=== PATIENT | male | born 1970 | race Caucasian/White ===

== ENCOUNTER 2017-09-08 19:27 | Observation (INO) ==
[2017-09-08] MEDS ORDERED: Sod Chloride 0.9% Inj 1,000 ML IV.SIG ONE ×2 (20:14→21:16)
--- NOTE | 2017-09-08 20:23 | ED ---
HPI General Chief Complaint: Chest Pain Stated Complaint: Cardiac Time Seen by Provider: 09/08/17 20:06 History of Present Illness HPI narrative: 47-year-old male presents to the emergency department complaining of left-sided chest tightness that radiates to the left upper extremity intermittently since 1 PM today. Patient does not report any type of recent injury or febrile illness. Patient does report history of coronary vessel disease with cardiac catheterization 3 in the past. Patient reports last cardiac catheterization was performed approximately 10 years ago when he lived in [place]. 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 Patient does have a local primary care provider. Patient also has history of hypertension dyslipidemia diabetes tobaccoism and gouty arthritis as well as bipolar disorder with anxiety. Patient does not have access to sublingual nitroglycerin. Patient is taken no medications for management of his pain. Patient rates his current pain 10/10 intensity but wall obtaining patient's history pain decreases to 6/10 intensity. Patient states symptoms are worsened by taking a deep breath and alleviated slightly by holding his arms over his head. Patient does not report any referred neck jaw mid scapular or abdominal pain. No sweats no nausea or vomiting. Patient states he would like to have a cigarette at this time. Patient does report that he recently traveled by motorcycle from [place] to [place] and back to [place] within the past 3 weeks and that he does have a family history of clotting disorder in his mother which occurred postoperatively. No report of recent protracted bedrest or surgical procedure. Patient has not noticed any marked swelling of the lower extremities. Complete Quality Measures for STEMI Alert Patients Related Data Home Medications Medication Instructions Recorded Confirmed alprazolam [Xanax] 2 mg PO BID 09/08/17 09/08/17 atorvastatin [Lipitor] 40 mg PO DAILY 09/08/17 09/08/17 gabapentin [Neurontin] 600 mg PO TID 09/08/17 09/08/17 lisinopril 40 mg PO DAILY 09/08/17 09/08/17 citalopram 09/09/17 09/09/17 insulin NPH and regular human 35 unit SUB-Q BID 09/09/17 09/09/17 [Novolin 70/30 U-100 Insulin] lurasidone 09/09/17 09/09/17 metformin 09/09/17 09/09/17 Allergies Allergy/AdvReac Type Severity Reaction Status Date / Time No Known Allergies Allergy Verified 09/08/17 19:34 Review of Systems Except as stated in HPI: all other systems reviewed are negative [facility] Medical History Medical History Bipolar 1 disorder (Acute) Gout (Acute) Neuropathy (Acute) TIA (transient ischemic attack) (Acute) Type II diabetes mellitus with neurological manifestations (Acute) Hypercholesteremia (Chronic) Hypertension (Chronic) Surgical History Surgical History History of appendectomy (Acute) History of hemorrhoidectomy (Acute) Hx of tonsillectomy (Acute) Family History Family History Father Coronary artery disease Mother Multiple myeloma CVA (cerebral vascular accident) Brother Multiple myeloma Social History Social History Substance History: No History of Abuse Second Hand Smoke Exposure: Yes Smoking Status: Heavy tobacco smoker Tobacco Type: Cigarettes Packs Per Day: 1 Cigarettes Per Day: 20.0 Years Smoked: 30 Pack-Years: 30.00 How Often Do You Have a Drink Containing Alcohol: Never Hx Recent Travel: Yes (Returned from trip to [place] via motorcycle 3 weeks ago) Recent Travel in [facility] within the Last 8 Weeks: No Recent Out of Country Travel within the Last 8 Weeks: No Immunization History Tetanus Immunization: <5 Years Hx Influenza Vaccine This Season: Yes Exam Narrative Exam Narrative: GENERAL: Well-nourished, well-developed patient. SKIN: Focused skin assessment warm/dry. HEAD: Normocephalic. EYES: No scleral icterus. No injection or drainage. NECK: Supple, trachea midline. No JVD or lymphadenopathy. CARDIOVASCULAR: Regular rate and rhythm without murmurs, gallops, or rubs. RESPIRATORY: Breath sounds equal bilaterally. No accessory muscle use. GASTROINTESTINAL: Abdomen soft, non-tender, nondistended. MUSCULOSKELETAL: No cyanosis, or edema. BACK: Nontender without obvious deformity. No CVA tenderness. Course Initial Documented Vital Signs Temperature 98.5 F 09/08/17 19:30 Pulse Rate 92 H 09/08/17 19:30 Respiratory Rate 20 09/08/17 19:30 Blood Pressure 144/76 H 09/08/17 19:30 Pulse Oximetry 97 09/08/17 19:30 Last Documented Vital Signs Temperature 97.5 F L 09/09/17 12:00 Pulse Rate 57 L 09/09/17 12:33 Respiratory Rate 15 09/09/17 12:33 Blood Pressure 125/83 09/09/17 12:00 Pulse Oximetry 97 09/09/17 12:00 Medical Decision Making MDM Narrative Medical decision making narrative: 47-year-old male with tobaccoism diabetes hypertension dyslipidemia CAD cardiac catheterization 3 with prior angioplasty and last cath showed a single-vessel of 45% disease 10 years ago presents now with left-sided chest tightness radiating to the left upper extremity. Patient placed on scrap collector with continuous pulse oximetry IV access obtained specimens collected and sent for resulting patient given bolus of normal saline aspirin 162 mg to be chewed as well as ordered to receive 1 sublingual nitroglycerin with close monitoring of his blood pressure EKG performed shows no acute ST elevation or injury pattern nonspecific coving of V3 without reciprocal changes. At 9:23 PM patient reports that chest pain has improved significantly from 10/ 10 intensity down to 3/10 in intensity lab values are found to be grossly within normal range except for random glucose of 392 and states he has not taken his evening dose of insulin 7030 also d-dimer is not elevated at 0.26 troponin I is less than 0.02, not elevated and CK total is 195 not elevated chest x-ray reveals no acute abnormality CBC with automated differential is grossly within normal range except for some eosinophilia potassium is 3.7 bicarb is in normal range at 27.5 and anion gap is 9 renal function is normal. Patient given additional fluid bolus additional dose of nitroglycerin 0.4 mg sublingual and Toradol 30 mg IV for complaint of pleuritic component of discomfort. O2 saturation remains 96-98% on room air. Patient does not complain of any shortness of breath at this time. Patient has no nausea has had no vomiting no diaphoresis and does not complain of referred pain at this time. In view of patient's risk factor profile male age 47 tobacco use diabetes uncontrolled hypertension dyslipidemia and known coronary vessel disease plan will be to admit patient to chest pain center per protocol. Patient also given dose of insulin regarding hyperglycemia. Patient states his last hemoglobin A1c was 11 approximately a month ago and patient reports his last cardiac evaluation was 5 years ago with a nuclear stress test in [place]. Patient has had no cardiac evaluation here in [place]. Patient is agreeable to observation admission. Differential Diagnosis Differential Diagnosis: Chest pain, ACS, HI, PE, ACS, musculoskeletal pain, esophageal spasm Medical Records no prior available records Lab Data Lab results reviewed: Yes I reviewed the patient's lab results. Result diagrams: 09/08/17 20:25 09/08/17 20:25 Lab Results 09/08/17 09/08/17 09/08/17 Range/Units 20:25 20:25 20:25 WBC 10.4 (4.0-11.0) th/mm3 RBC 4.91 (4.50-5.90) mil/mm3 Hgb 15.3 (13.0-17.0) gm/dL Hct 43.8 (39.0-51.0) % MCV 89.2 (80.0-100.0) fL MCH 31.1 (27.0-34.0) pg MCHC 34.8 (32.0-36.0) % RDW 13.4 (11.6-17.2) % Plt Count 355 (150-450) th/mm3 MPV 7.2 (7.0-11.0) fL Neut % (Auto) 66.1 (16.0-70.0) % Lymph % (Auto) 19.4 (9.0-44.0) % [place] % (Auto) 7.5 (0.0-8.0) % Eos % (Auto) 6.4 H (0.0-4.0) % Baso % (Auto) 0.6 (0.0-2.0) % Neut # (Auto) 6.9 (1.8-7.7) th/mm3 Lymph # (Auto) 2.0 (1.0-4.8) th/mm3 [place] # (Auto) 0.8 (0.0-0.9) th/mm3 Eos # (Auto) 0.7 H (0.0-0.4) th/mm3 Baso # (Auto) 0.1 (0.0-0.2) th/mm3 WBC Differential . Differential Comment Auto diff final PT 10.5 (9.8-11.6) sec INR 1.0 Ratio APTT 25.1 (24.3-30.1) sec D-Dimer Quant (PE/DVT) 0.26 (0.00-0.50) mg/L FEU Sodium 131 L (136-145) meq/L Potassium 3.7 (3.5-5.1) meq/L Chloride 95 L (98-107) meq/L Carbon Dioxide 27.5 (21.0-32.0) meq/L Anion Gap 9 (5-15) meq/L BUN 3 L (7-18) mg/dL Creatinine 1.29 (0.60-1.30) mg/dL Estimated GFR 60 L (>89) mL/min POC Glucose (68-110) mg/dl Random Glucose 392 H (74-106) mg/dL Calcium 9.1 (8.5-10.1) mg/dL Total Creatine Kinase 195 (39-308) U/L CK-MB (CK-2) 0.8 (0.5-3.6) ng/mL Troponin I Less than 0.02 L (0.02-0.05) ng/mL 09/08/17 09/08/17 09/09/17 Range/Units 22:21 23:30 02:40 WBC (4.0-11.0) th/mm3 RBC (4.50-5.90) mil/mm3 Hgb (13.0-17.0) gm/dL Hct (39.0-51.0) % MCV (80.0-100.0) fL MCH (27.0-34.0) pg MCHC (32.0-36.0) % RDW (11.6-17.2) % Plt Count (150-450) th/mm3 MPV (7.0-11.0) fL Neut % (Auto) (16.0-70.0) % Lymph % (Auto) (9.0-44.0) % [place] % (Auto) (0.0-8.0) % Eos % (Auto) (0.0-4.0) % Baso % (Auto) (0.0-2.0) % Neut # (Auto) (1.8-7.7) th/mm3 Lymph # (Auto) (1.0-4.8) th/mm3 [place] # (Auto) (0.0-0.9) th/mm3 Eos # (Auto) (0.0-0.4) th/mm3 Baso # (Auto) (0.0-0.2) th/mm3 WBC Differential Differential Comment PT (9.8-11.6) sec INR Ratio APTT (24.3-30.1) sec D-Dimer Quant (PE/DVT) (0.00-0.50) mg/L FEU Sodium (136-145) meq/L Potassium (3.5-5.1) meq/L Chloride (98-107) meq/L Carbon Dioxide (21.0-32.0) meq/L Anion Gap (5-15) meq/L BUN (7-18) mg/dL Creatinine (0.60-1.30) mg/dL Estimated GFR (>89) mL/min POC Glucose 264 H (68-110) mg/dl Random Glucose (74-106) mg/dL Calcium (8.5-10.1) mg/dL Total Creatine Kinase 168 (39-308) U/L CK-MB (CK-2) (0.5-3.6) ng/mL Troponin I Less than 0.02 L Less than 0.02 L (0.02-0.05) ng/mL 09/09/17 Range/Units 12:21 WBC (4.0-11.0) th/mm3 RBC (4.50-5.90) mil/mm3 Hgb (13.0-17.0) gm/dL Hct (39.0-51.0) % MCV (80.0-100.0) fL MCH (27.0-34.0) pg MCHC (32.0-36.0) % RDW (11.6-17.2) % Plt Count (150-450) th/mm3 MPV (7.0-11.0) fL Neut % (Auto) (16.0-70.0) % Lymph % (Auto) (9.0-44.0) % [place] % (Auto) (0.0-8.0) % Eos % (Auto) (0.0-4.0) % Baso % (Auto) (0.0-2.0) % Neut # (Auto) (1.8-7.7) th/mm3 Lymph # (Auto) (1.0-4.8) th/mm3 [place] # (Auto) (0.0-0.9) th/mm3 Eos # (Auto) (0.0-0.4) th/mm3 Baso # (Auto) (0.0-0.2) th/mm3 WBC Differential Differential Comment PT (9.8-11.6) sec INR Ratio APTT (24.3-30.1) sec D-Dimer Quant (PE/DVT) (0.00-0.50) mg/L FEU Sodium (136-145) meq/L Potassium (3.5-5.1) meq/L Chloride (98-107) meq/L Carbon Dioxide (21.0-32.0) meq/L Anion Gap (5-15) meq/L BUN (7-18) mg/dL Creatinine (0.60-1.30) mg/dL Estimated GFR (>89) mL/min POC Glucose 356 H (68-110) mg/dl Random Glucose (74-106) mg/dL Calcium (8.5-10.1) mg/dL Total Creatine Kinase (39-308) U/L CK-MB (CK-2) (0.5-3.6) ng/mL Troponin I (0.02-0.05) ng/mL Imaging Data Radiologist's impression: Chest X-Ray 09/08/17 20:13 CONCLUSION: No acute cardiopulmonary process. Myocardial Perfusion Scan Nuc Med 09/09/17 00:00 CONCLUSION: 1. Unremarkable study. ECG Data EKG Prior to Arrival: No Attestation: I personally reviewed and interpreted this ECG as follows: Prior ECG tracings: not available for review Interpretation: EKG normal sinus rhythm rate 86 normal axis and intervals. No acute ST elevation or injury pattern or cervical changes patient has nonspecific coving of V3. Discharge Plan Discharge Disposition Patient Disposition: 01 Discharge Home Discharge Condition Condition: Good Discharge Order Discharge Orders: Discharge Order (Routine); Ordered 09/09/17 Ordered By: Linnette Carlson Discharge Details Anticipated Discharge Date: 09/09/17 Physicians Team ED Provider: Sheryl Kendrick Primary Care Provider: UNKNOWN, Attending Provider: Cesario Minor ED Status: Left Department Discharge Information Discharge Date/Time: 09/08/17 23:47
[2017-09-08 20:33] LABS: Baso # (Auto) 0.1 th/mm3 (0.0-0.2); Baso % (Auto) 0.6 % (0.0-2.0); Eos # (Auto) 0.7 th/mm3 (0.0-0.4); Eos % (Auto) 6.4 % (0.0-4.0); Hematocrit 43.8 % (39.0-51.0); Hemoglobin 15.3 gm/dL (13.0-17.0); Lymph % (Auto) 19.4 % (9.0-44.0); Mean Corpuscular HGB Conc 34.8 % (32.0-36.0); Mean Corpuscular Hemoglobin 31.1 pg (27.0-34.0); Mean Corpuscular Volume 89.2 fL (80.0-100.0); Mean Platelet Volume 7.2 fL (7.0-11.0); Mono # (Auto) 0.8 th/mm3 (0.0-0.9); Mono % (Auto) 7.5 % (0.0-8.0); Neut # (Auto) 6.9 th/mm3 (1.8-7.7); Neut % (Auto) 66.1 % (16.0-70.0); Platelet Count 355 th/mm3 (150-450); Red Blood Count 4.91 mil/mm3 (4.50-5.90); Red Cell Distribution Width 13.4 % (11.6-17.2); White Blood Count 10.4 th/mm3 (4.0-11.0)
--- NOTE | 2017-09-08 20:41 | XR ---
EXAM DATE: 09/08/2017 8:40 PM EDT AGE/SEX: 47 years / Male INDICATIONS: Midline-left chest pain. CLINICAL DATA: This is the patient's initial encounter. Patient reports that signs and symptoms have been present for 1 day and indicates a pain score of 5/10. MEDICAL/SURGICAL HISTORY: Asthma. Hypertension. . Heart catheterization. COMPARISON: No prior exams available for comparison. FINDINGS: A single AP view of the chest demonstrates the lungs to be symmetrically aerated without evidence of mass, infiltrate or effusion. The cardiomediastinal contours are unremarkable. Osseous structures a re intact. CONCLUSION: No acute cardiopulmonary process. Electronically signed by: Edd Ortega MD 09/08/2017 8:40 PM EDT
[2017-09-08 20:50] LABS: Activated Partial Thrombo Time 25.1 sec (24.3-30.1); Anion Gap 9 meq/L (5-15); Blood Urea Nitrogen 3 mg/dL (7-18); Calcium 9.1 mg/dL (8.5-10.1); Carbon Dioxide 27.5 meq/L (21.0-32.0); Chloride 95 meq/L (98-107); Glomerular Filtration Rate 60 mL/min (>89); Glucose,Random 392 mg/dL (74-106); Potassium 3.7 meq/L (3.5-5.1); Prothrombin Time 10.5 sec (9.8-11.6); Sodium 131 meq/L (136-145)
[2017-09-08 20:51] LABS: D-Dimer 0.26 mg/L FEU (0.00-0.50)
[2017-09-08 20:54] LABS: Creatine Kinase 195 U/L (39-308)
[2017-09-08 21:06] LABS: Creatine Kinase MB 0.8 ng/mL (0.5-3.6)
[2017-09-08] MEDS ORDERED: Ketorolac Inj 30 MG/ML (IVP) Vial IV.PUSH ONE (21:17)
[2017-09-08] MEDS ORDERED: Acetaminophen 500 MG Tablet PO PRN (21:19)
[2017-09-08] MEDS ORDERED: ALPRAZolam 0.25 MG Tablet PO PRN (21:19)
[2017-09-09] LABS: Creatine Kinase 168 U/L (39-308)
[2017-09-09] MEDS ORDERED: Aspirin 325 MG Tablet PO SCH (09:00)
[2017-09-09] MEDS ORDERED: Dextrose 50% in Water 50 ML Vial IV.PUSH PRN (09:13)
--- NOTE | 2017-09-09 09:13 | P.HPCA ---
History of Present Illness Primary Care Physician: Dr. Hernadez Chief Complaint: Chest pain History of Present Illness: 47 year old male with history of CAD, hypertension, hyperlipidemia, type 2 diabetes, and current smoker presents emergency room for further evaluation of nonexertional, intermittent chest pain. Onset yesterday 1 PM. Location left anterior chest. Characterized as a squeezing tight pain. Moderate to severe in severity. Duration constant from seconds to minutes, waxed and waned in intensity, occurring ever 5-10 minutes. Associated symptoms including nausea, dyspnea, diaphoresis, her to take a deep breath. Comfort somewhat worse with left arm movement. Relieving factors "laying still." Denies discomfort being similar to past cardiac event. No recent illness, fever, or injury. Reports cardiac catheterization completed 10 years ago. Cardiac catheterization completed after abnormal stress test. Denies any stents placed during that time , but recalls possible "cleaning out of 1 artery, the other arteries had 40% blockage." does not follow with a workforce specialist. No recent cardiac testing. Diagnoses with type II diabetes one year ago, currently uncontrolled. - Diagnosis (1) Chest pain in adult (2) Tobacco abuse (3) Hypercholesteremia (4) Hypertension (5) Diabetes (6) Hyponatremia Review of Systems All other systems reviewed negative except as stated in HPI PMFSH - History History Provided By: Patient - Medical History Medical History: Medical History (Last Updated 09/09/17 @ 11:25 by JACKI Goodwin) Bipolar 1 disorder Gout Neuropathy TIA (transient ischemic attack) Type II diabetes mellitus with neurological manifestations Hypercholesteremia Hypertension - Surgical History Surgical History: Surgical History (Last Updated 09/09/17 @ 11:02 by JACKI Goodwin) History of appendectomy History of hemorrhoidectomy Hx of tonsillectomy - Family History Family History: Family History (Last Updated 09/09/17 @ 11:05 by JACKI Goodwin) Father Coronary artery disease Mother Multiple myeloma CVA (cerebral vascular accident) Brother Multiple myeloma - Tobacco History Second Hand Smoke Exposure: Yes Tobacco Use In Past 30 Days: Yes Smoking Status: Heavy tobacco smoker Tobacco Type: Cigarettes Packs Per Day: 1 Years Smoked: 30 - Alcohol History How Often Do You Have a Drink Containing Alcohol: Never - Substance Use History Substance History: No History of Abuse - Travel History History of Recent Travel: Yes (Returned from trip to [place] via motorcycle 3 weeks ago) Recent Travel in the [facility] Within the Last 8 Weeks: No Recent Travel Out of the Country Within the Last 8 Weeks: No - Immunization History Tetanus Immunization: <5 Years Hx Influenza Vaccine This Season: Yes Medications and Allergies Active Medications: Active Medications Acetaminophen (Tylenol) 500 mg PO Q4H PRN PRN Reason: HEADACHE Alprazolam (Xanax) 0.25 mg PO Q8H PRN PRN Reason: ANXIETY Aspirin (Aspirin) 325 mg PO DAILY [facility] Last Admin: 09/09/17 08:30 Dose: 325 mg Nitroglycerin (Nitrostat Sl) 0.4 mg SL Q5M PRN PRN Reason: CHEST PAIN Sodium Chloride (Ns Flush) 2 ml IV.FLUSH UNSCH PRN PRN Reason: FLUSH AFTER USING IV ACCESS Sodium Chloride (Ns Flush) 2 ml IV.FLUSH PRN PRN PRN Reason: FLUSH AFTER USING IV ACCESS Sodium Chloride (Ns Flush) 2 ml IV.FLUSH BID [facility] Last Admin: 09/09/17 08:30 Dose: 2 ml Allergies Allergy/AdvReac Type Severity Reaction Status Date / Time No Known Allergies Allergy Verified 09/08/17 19:34 Home Medications Medication Instructions Recorded Confirmed Type alprazolam [Xanax] 2 mg PO BID 09/08/17 09/08/17 History atorvastatin [Lipitor] 40 mg PO DAILY 09/08/17 09/08/17 History gabapentin [Neurontin] 600 mg PO TID 09/08/17 09/08/17 History lisinopril 40 mg PO DAILY 09/08/17 09/08/17 History citalopram 09/09/17 09/09/17 History insulin NPH and regular human 35 unit SUB-Q BID 09/09/17 09/09/17 History [Novolin 70/30 U-100 Insulin] lurasidone [Latuda] 09/09/17 09/09/17 History metformin 09/09/17 09/09/17 History Exam Vital signs: Vital Signs 09/08/17 19:30 09/08/17 20:01 09/08/17 20:13 Temperature 98.5 F 98.2 F Pulse Rate 92 H 88 Pulse Rate [Left] Respiratory Rate 20 20 Blood Pressure 144/76 H 108/75 Blood Pressure [Left Arm] Blood Pressure [Right Arm] Pulse Oximetry 97 95 96 09/08/17 20:30 09/08/17 21:19 09/08/17 21:30 Temperature Pulse Rate 78 Pulse Rate [Left] 80 Respiratory Rate 20 20 Blood Pressure 140/72 Blood Pressure [Left Arm] 113/75 Blood Pressure [Right Arm] 109/68 Pulse Oximetry 96 96 09/08/17 21:54 09/08/17 21:55 09/08/17 22:28 Temperature Pulse Rate Pulse Rate [Left] Respiratory Rate 20 20 20 Blood Pressure Blood Pressure [Left Arm] Blood Pressure [Right Arm] Pulse Oximetry 09/08/17 22:36 09/09/17 00:00 09/09/17 01:47 Temperature 98.6 F Pulse Rate 77 81 81 Pulse Rate [Left] Respiratory Rate 20 16 Blood Pressure 143/63 H 116/69 Blood Pressure [Left Arm] Blood Pressure [Right Arm] Pulse Oximetry 97 09/09/17 04:00 09/09/17 08:00 09/09/17 08:08 Temperature 98.4 F 97.4 F L Pulse Rate 72 78 Pulse Rate [Left] Respiratory Rate 16 16 Blood Pressure 107/72 126/82 Blood Pressure [Left Arm] Blood Pressure [Right Arm] Pulse Oximetry 96 97 97 Intake & Output 09/08/17 09/09/17 09/09/17 18:59 06:59 18:59 Intake Total 1999 Balance 1999 Weight 90.718 kg Intake: IV 1999 NS Inj 1,000 ML @ Wide Open IV. 1999 SIG BOLUS ONE Rx#:[id number] Other: Weight On Admission 90.718 kg Narrative: Pleasant male in no acute distress - Constitutional no acute distress, cooperative - Routine HEENT Exam Head: Present: normocephalic, atraumatic - Routine Neck Exam Present: supple, full ROM. Absent: JVD, carotid bruit - Routine Chest/Breast/Axilla Exam Chest wall: Absent: tenderness - Routine Respiratory Exam Present: decreased breath sounds, prolonged expiratory phase, rhonchi, wheezes. Absent: rales, respiratory distress, crackles Comments: Expiratory wheeze throughout - Routine Cardiovascular Exam Present: RRR. Absent: murmur, gallop, rubs - Routine Abdominal Exam Present: soft, normoactive bowel sounds. Absent: tenderness, distended, firm - Routine Extremities Exam Present: full ROM, pulses intact, normal capillary refill. Absent: edema, calf tenderness - Routine Skin Exam Present: intact, warm Comments: Heavily tattooed - Routine Neurological Exam Present: alert, oriented X3, CN II-XII intact, moving all extremities, normal tone - Routine Psychiatric Exam Present: normal affect, normal thought process, cooperative, good insight, good judgment. Absent: depressed, anxious, agitated, manic Results 09/08/17 20:25 09/08/17 20:25 Cardiac Enzymes 09/08/17 09/08/17 09/09/17 Range/Units 20:25 23:30 02:40 CK-MB (CK-2) 0.8 (0.5-3.6) ng/mL Troponin I Less than 0.02 L Less than 0.02 L Less than 0.02 L (0.02-0.05) ng/mL Coagulation 09/08/17 Range/Units 20:25 PT 10.5 (9.8-11.6) sec APTT 25.1 (24.3-30.1) sec CBC 09/08/17 Range/Units 20:25 WBC 10.4 (4.0-11.0) th/mm3 RBC 4.91 (4.50-5.90) mil/mm3 Hgb 15.3 (13.0-17.0) gm/dL Hct 43.8 (39.0-51.0) % Plt Count 355 (150-450) th/mm3 Neut # (Auto) 6.9 (1.8-7.7) th/mm3 Lymph # (Auto) 2.0 (1.0-4.8) th/mm3 [place]ha # (Auto) 0.8 (0.0-0.9) th/mm3 Eos # (Auto) 0.7 H (0.0-0.4) th/mm3 Baso # (Auto) 0.1 (0.0-0.2) th/mm3 Comprehensive Metabolic Panel 09/08/17 Range/Units 20:25 Sodium 131 L (136-145) meq/L Potassium 3.7 (3.5-5.1) meq/L Chloride 95 L (98-107) meq/L Carbon Dioxide 27.5 (21.0-32.0) meq/L BUN 3 L (7-18) mg/dL Creatinine 1.29 (0.60-1.30) mg/dL Calcium 9.1 (8.5-10.1) mg/dL Intake and Output 09/08/17 09/09/17 09/09/17 22:59 06:59 14:59 Intake Total 1999 Balance 1999 Intake: IV 1999 NS Inj 1,000 ML @ Wide Open IV. 1999 SIG BOLUS ONE Rx#:[id number] Other: Weight 90.718 kg 90.718 kg Weight On Admission 90.718 kg EKG interpretations - EKG EKG results cardiology: sinus rhythm, normal axis, normal QRS (NSR, nonspecific st t segment changes) Caprini VTE Risk Assessment Caprini VTE Risk Assessment: No/Low Risk (score <= 1) Caprini Risk Assessment Model: Point Value = 1 Point Value = 2 Point Value = 3 Point Value = 5 Age 41-60 Minor surgery BMI > 25 kg/m2 Swollen legs Varicose veins or History of unexplained or recurrent spontaneous Oral contraceptives or hormone replacement Sepsis (< 1 month) Serious lung disease, including pneumonia (< 1 month) Abnormal pulmonary function Acute myocardial infarction Congestive heart failure (< 1 month) History of inflammatory bowel disease Medical patient at bed rest Age 61-74 Arthroscopic surgery Major open surgery (> 45 min) Laparoscopic surgery (> 45 min) Malignancy Confined to bed (> 72 hours) Immobilizing plaster cast Central venous access Age >= 75 History of VTE Family history of VTE Factor V Leiden Prothrombin [id number] Lupus anticoagulant Anticardiolipin antibodies Elevated serum homocysteine Heparin-induced thrombocytopenia Other congenital or acquired thrombophilia Stroke (< 1 month) Elective arthroplasty Hip, pelvis, or leg fracture Acute spinal cord injury (< 1 month) Prophylaxis Regimen: Total Risk Factor Score Risk Level Prophylaxis Regimen 0-1 Low Early ambulation 2 Moderate Order ONE of the following: *Sequential Compression Device (SCD) *Heparin 5000 units SQ BID 3-4 Higher Order ONE of the following medications: *Heparin 5000 units SQ TID *Enoxaparin/Lovenox 40 mg SQ daily (WT < 150 kg, CrCl > 30 mL/min) *Enoxaparin/Lovenox 30 mg SQ daily (WT < 150 kg, CrCl > 10-29 mL/min) *Enoxaparin/Lovenox 30 mg SQ BID (WT < 150 kg, CrCl > 30 mL/min) AND/OR *Sequential Compression Device (SCD) 5 or more Highest Order ONE of the following medications: *Heparin 5000 units SQ TID (Preferred with Epidurals) *Enoxaparin/Lovenox 40 mg SQ daily (WT < 150 kg, CrCl > 30 mL/min) *Enoxaparin/Lovenox 30 mg SQ daily (WT < 150 kg, CrCl > 10-29 mL/min) *Enoxaparin/Lovenox 30 mg SQ BID (WT < 150 kg, CrCl > 30 mL/min) AND *Sequential Compression Device (SCD) Assessment and Plan - Assessment (1) Chest pain in adult Code(s): R07.9 - Chest pain, unspecified Status: Acute Plan: Admitted to chest pain center. ACS ruled out overnight including 3 sets of EKGs and cardiac enzymes. Seen and evaluated by Dr. Cesario Minor. Proceed with chemical cardiac testing this morning. If unremarkable, plans to discharge home with follow-up with PCP. (2) Tobacco abuse Code(s): Z72.0 - Tobacco use Status: Chronic Plan: Strongly encouraged and stressed importance of tobacco cessation. Instructed to quit smoking. (3) Hypercholesteremia Code(s): E78.00 - Pure hypercholesterolemia, unspecified Status: Chronic Plan: Continue atorvastatin (4) Hypertension Code(s): I10 - Essential (primary) hypertension Status: Chronic Plan: Continue to monitor. Continue lisinopril. Encouraged low-sodium diet of no more than 2000 mg daily, increasing daily activity, and smoking sensation. (5) Diabetes Code(s): E11.9 - Type 2 diabetes mellitus without complications Status: Chronic Plan: SSI moderate dose coverage. Hold oral anti-glycemic's while n.p.o. Discussed importance of tight blood glucose control and close follow up with PCP. (6) Hyponatremia Code(s): E87.1 - Hypo-osmolality and hyponatremia Status: Acute Plan: Fluid bolus given in ER. H&P: Quality - VTE Deep Vein Thrombosis/Pulmonary Embolism Present on Admission: No (4) Hypertension Qualifiers: Hypertension type: unspecified Qualified Code(s): I10 - Essential (primary) hypertension (5) Diabetes Qualifiers: Diabetes mellitus type: type 2 Diabetes mellitus residential insulin use: unspecified rat exterminator insulin use status Diabetes mellitus complication detail : with unspecified neuropathy
[2017-09-09] MEDS ORDERED: Lisinopril 20 MG Tablet PO SCH (10:00)
[2017-09-09] MEDS ORDERED: Insulin NovoLOG Aspart Correctional Sugar Inj SQ SCH (12:00)
[2017-09-09] MEDS ORDERED: Gabapentin 300 MG Capsule PO SCH (13:00)
[2017-09-09] MEDS ORDERED: Regadenoson Inj 0.4 MG/5 ML Syringe IV.PUSH ONE (14:00)
--- NOTE | 2017-09-09 14:13 | ECG ---
Date Performed: 09/08/2017 Time Performed: 23:35:27 PTAGE: 47 years EKG: Sinus rhythm NONSPECIFIC T-WAVE ABNORMALITY BORDERLINE ECG NO PREVIOUS TRACING DOCTOR: Charbel Solares Interpretating Date/Time 09/09/2017 14:09:14
--- NOTE | 2017-09-09 15:32 | NM ---
EXAM DATE: 09/09/2017 3:20 PM EDT AGE/SEX: 47 years / Male INDICATIONS:Angina. . Chest pain. CLINICAL DATA: This is the patient's initial encounter. Patient reports that signs and symptoms have been present for 1 day and indicates a pain score of 0/10. MEDICAL/SURGICAL HISTORY: Diabetes mellitus type II. Hypertension. Appendectomy. Tonsillectom y. Hemorrhoidectomy. COMPARISON: No prior exams available for comparison. DOSE: 8.5 mCi Tc 99m Myoview at rest 27.3 mCi [id number] at stress 0.4 mg Lexiscan STRESS SYMPTOMS: Chest pain and dyspnea. EJECTION FRACTION: 77 % TECHNIQUE: The patient underwent pharmacologic stress with infusion of prescribed dose. Continuous ECG tracing was monitored during stress. Gated SPECT imaging was performed after stress and conventi onal SPECT imaging was performed at rest. The examination was performed on a SPECT/CT scanner, both attenuation and non-corrected datasets were reviewed. FINDINGS: Distribution: The maximum perfused segment at stress is in the anteroseptal wall. Perfusion Study: The pattern of perfusion at stress is within normal limits. Gated Study: There are intact wall motion and wall thickening without hypokinetic or dyskinetic segm ents. The ejection fraction is calculated at 77%. RISK CATEGORY: Low (<1% Annual Motality Rate) CONCLUSION: 1. Unremarkable study. Electronically signed by: Saima Wolfe MD 09/09/2017 3:31 PM EDT
--- NOTE | 2017-09-10 11:33 | ECG ---
Date Performed: 09/08/2017 Time Performed: 19:41:09 PTAGE: 47 years EKG: Sinus rhythm NONSPECIFIC T-WAVE ABNORMALITY BORDERLINE ECG NO PREVIOUS TRACING DOCTOR: Cesario Minor Interpretating Date/Time 09/10/2017 11:31:32
--- NOTE | 2017-09-10 11:44 | ECG ---
Date Performed: 09/09/2017 Time Performed: 02:41:02 PTAGE: 47 years EKG: Sinus rhythm NONSPECIFIC T-WAVE ABNORMALITY BORDERLINE ECG PREVIOUS TRACING : 09/08/2017 19.41 Since previous tracing, no significant change noted DOCTOR: Cesario Minor Interpretating Date/Time 09/10/2017 11:42:32
--- NOTE | 2017-09-12 17:00 | TR ---
Date Performed: 09/09/2017 Time Performed: 14:12:57 DOCTOR: Mariana Ramirez DRUG LIST: CLINICAL HISTORY: REASON FOR TEST: REASON FOR ENDING: OBSERVATION: CONCLUSION: Lexiscan stress test was performed under standard four minute protocol. Radionuclid e was injected one minute prior to ending the test. No electrocardiographic abormalities were present to suggest ischemia. Nuclear imaging and interpretation are pending. COMMENTS: no ischemia
== END 2017-09-09 17:13 | disposition home or self-care (01) ==
LOC: NEDA 19:27 → NEPC 19:27 → NEPFCDU 19:27